=== PATIENT | male | born 1960 | race Caucasian/White ===

== ENCOUNTER → 2017-02-12 | Outpatient (CLI) | payer BC ==
[~2017-02-12] MED LIST: GLCSUNK PO; LEVO150T22 PO; MULT-513 PO; OMEG10007 PO
--- NOTE | 2017-02-12 11:33 | DIAGNOSTIC IMAGING REPORT ---
RIGHT ANKLE MIN 3 VIEWS CLINICAL HISTORY: RIGHT ANKLE PAIN Right pain COMPARISON: None. DISCUSSION: The bones and joint spaces appear intact. There is no evidence of fracture, dislocation or bony disease. Calcification of the interosseous ligament between the distal tibia and distal fibula. Minimal osteophytic reaction from the medial as well as lateral malleolus. IMPRESSION: Mild degenerative change including calcification of the interosseous ligament. No acute bony abnormality. The above report was generated using voice recognition software. It may contain grammatical, syntax or spelling errors. Electronically signed by: Marquise Hatfield M.D. 02/12/2017 11:32 AM Dictated Date/Time: 02/12/2017 11:31 AM
== END | disposition home or self-care (01) ==
LOC: C.RDSM 10:48
PROVIDERS: ATTEND Physician Assistant
DX: R52 Pain, unspecified (principal)

== ENCOUNTER → 2017-02-23 | Outpatient (CLI) | payer BC | END | disposition home or self-care (01) | LOC: C.RDSM 07:30 | PROVIDERS: ATTEND Physical Medicine & Rehabilitation Sports Medicine | DX: M17.0 Bilateral primary osteoarthritis of knee (principal) ==

== ENCOUNTER → 2017-06-03 | Outpatient (CLI) | payer BC ==
[~2017-06-03] MED LIST changes: +ACET-1256 PO; +B-COTAB18 PO; +BACL10TA PO; +CHOL20007 PO; -GLCSUNK PO; +GLUCTAB7 PO; -LEVO150T22 PO; +LEVO200T6 PO; +NAPROSYN PO; +TURMERIC PO; +VITAMIN E PO
--- NOTE | 2017-06-03 07:28 | DIAGNOSTIC IMAGING REPORT ---
ABDOMINAL ULTRASOUND, RIGHT UPPER QUADRANT HISTORY: Elevated liver function tests. COMPARISON: None. FINDINGS: Hepatic echogenicity is diffusely increased consistent with fatty infiltration with suspected sparing within the gallbladder fossa. The liver morphology is normal. There is no biliary ductal dilatation. Pancreas is obscured by overlying bowel gas. There is no right hydronephrosis. The gallbladder is normal. There are no gallstones. IMPRESSION: 1. Fatty infiltration of the liver. 2. No gallstones or biliary ductal dilatation. 3. Obscured pancreas. Electronically signed by: Omer Naidu M.D. 06/03/2017 7:27 AM Dictated Date/Time: 06/03/2017 7:25 AM
== END | disposition home or self-care (01) ==
LOC: C.ULTR 06:35
PROVIDERS: ATTEND Family Medicine
DX: R79.89 Other specified abnormal findings of blood chemistry (principal); K76.0 Fatty (change of) liver, not elsewhere classified

== ENCOUNTER 2017-06-10 06:19 | Inpatient (IN) | payer BC ==
[2017-05-28 14:16] VITALS: BMI 31.0
--- NOTE | 2017-05-28 14:48 | PAT Medication Instructions ---
Service Date May 28, 2017. Current Home Medication List Acetaminophen (Tylenol), 1,000 MG PO PRN B-Complex Vitamins (Vitamin B Complex), 1 TAB PO QAM Baclofen (Lioresal), 10 MG PO BID PRN for RN Cholecalciferol (Vitamin D3), 5,000 UNITS PO QAM Fish Oil (Columbia-3), 1 CAP PO QAM Susxajtrrdz-Juadvtawqsq-Zch C- (Glucosamine Chondroitin), 2 TAB PO QAM Levothyroxine Sodium (Levothyroxine Sodium), 1 TAB PO QAM Multivitamins/Minerals (Mvi With Minerals), 1 TAB PO QAM [Naprosyn], 2 TAB PO QAM PRN for RN [Turmeric], 1 TAB PO QAM [Vitamin E], 1 TAB PO QAM Medication Instructions For Your Scheduled Surgery - Check with surgeon for instructions: [Naprosyn], 2 TAB PO QAM PRN for RN - Hold the following medications starting 05/29/17: [Turmeric], 1 TAB PO QAM [Vitamin E], 1 TAB PO QAM Fish Oil (Columbia-3), 1 CAP PO QAM Mxvaevgksyg-Jazjgnuysei-Wvk C- (Glucosamine Chondroitin), 2 TAB PO QAM - Hold the following medications the morning of surgery: B-Complex Vitamins (Vitamin B Complex), 1 TAB PO QAM Baclofen (Lioresal), 10 MG PO BID PRN for RN Cholecalciferol (Vitamin D3), 5,000 UNITS PO QAM Multivitamins/Minerals (Mvi With Minerals), 1 TAB PO QAM - Take the following medications the morning of surgery with a sip of water: Levothyroxine Sodium (Levothyroxine Sodium), 1 TAB PO QAM Acetaminophen (Tylenol), 1,000 MG PO PRN (okay to take up to 4 hours prior to surgery if needed) If you have any questions please call us at [phone] or [phone] or [phone]
--- NOTE | 2017-05-28 15:34 | DIAGNOSTIC IMAGING REPORT ---
TWO VIEW CHEST CLINICAL HISTORY: Preoperative examination. FINDINGS: PA and lateral chest radiographs are compared to study dated 07/01/2010. The cardiomediastinal silhouette is unremarkable. The lungs and pleural spaces are clear. There is no pneumothorax. The bony thorax appears intact. IMPRESSION: No active disease in the chest. Electronically signed by: Shelton Whaley M.D. 05/28/2017 3:33 PM Dictated Date/Time: 05/28/2017 3:33 PM
[2017-05-28 15:56] LABS: BASO % 0.3 %; BASO ABS # 0.02 K/uL (0-0.2); COMPLETE YES; EOS % 3.2 %; HEMATOCRIT 41.5 % (42-52); IG% 0.3 %; LYMPH % 42.1 %; LYMPH ABS # 2.78 K/uL (1.2-3.4); MEAN CELL VOLUME 85.9 fL (80-100); MEAN CORPUSCULAR HEMOGLOBIN 29.2 pg (25-34); MONO % 6.1 %; PLATELET COUNT 201 K/uL (130-400); RED BLOOD COUNT 4.83 M/uL (4.7-6.1); WHITE BLOOD COUNT 6.61 K/uL (4.8-10.8)
[2017-05-28 16:05] LABS: URINE APPEARANCE CLEAR (CLEAR); URINE BILIRUBIN NEG (NEG); URINE COLOR YELLOW; URINE NITRITE NEG (NEG); URINE SPECIFIC GRAVITY 1.019 (1.000-1.030); UROBILINOGEN NEG (NEG)
[2017-05-28 16:06] LABS: INR 0.9 (0.9-1.1); PARTIAL THROMBOPLASTIN RATIO 1.1
[2017-05-28 16:14] LABS: MANUAL MICROSCOPIC REQUIRED? NO; REVIEW REQ? NO
[2017-05-28 16:37] LABS: BUN/CREATININE RATIO 17.5 (10-20); CALCIUM 8.5 mg/dl (8.5-10.1); CREATININE 1.05 mg/dl (0.60-1.40); POTASSIUM 3.6 mmol/L (3.5-5.1)
--- NOTE | 2017-06-01 15:32 | HISTORY & PHYSICAL EXAMINATION ---
DATE OF ADMISSION: 06/10/2017 CHIEF COMPLAINT: Left knee pain. HISTORY OF PRESENT ILLNESS: This 56-year-old white male presents to the office with complaints of left knee pain that had been ongoing for several years. It has become worse with time. Pain is affecting his ADLs. Pain is worse with ambulation and weightbearing. He does have a history of previous knee arthroscopy and ACL reconstruction in this knee. There is a previous right total knee arthroplasty and he has done well with that. He elects to proceed with the same on the left. He has tried physical therapy as well as oral anti-inflammatories and activity modification without lasting relief. Preoperative x-rays have been obtained. PAST MEDICAL HISTORY: Significant for elevated cholesterol, peripheral neuropathy, hypothyroidism, low back pain, GERD, varicocele, and obesity. PREVIOUS SURGERIES: Laminectomy in 2010, right knee TKA in 2010, bilateral shoulder rotator cuff repairs, hernia repair, left knee ACL reconstruction, and bilateral knee arthroscopies. ALLERGIES: NKDA. CURRENT MEDICATIONS: Naprosyn p.r.n., ibuprofen p.r.n., Voltaren gel p.r.n., fluticasone nasal spray daily, vitamin E daily, vitamin D daily, Synthroid 200 mcg p.o. daily, multivitamin daily, baclofen 10 mg p.o. b.i.d., omega 3 fatty acids daily, and Tylenol p.o. b.i.d. SOCIAL HISTORY: The patient is . Employed. No tobacco use. Occasional ETOH use. FAMILY HISTORY: Significant for breast cancer, depression, heart disease, and skin cancer. REVIEW OF SYSTEMS: Significant for above stated conditions. Otherwise, unremarkable. PHYSICAL EXAMINATION: GENERAL: Well-developed and well-nourished middle aged white male in no acute distress. Sitting on a bed. Alert and oriented. SKIN: Warm and dry with good turgor. No rashes or lesions. No ecchymosis or erythema. HEENT: Normocephalic and atraumatic. Eyes, PERRLA and EOMI. Nares patent bilaterally without turbinate enlargement. Oropharynx is without erythema or exudate. No lesions noted. Uvula midline. Oral mucosa moist. Good dentition. HEART: RRR. No MGR. LUNGS: Clear to auscultation bilaterally. No crackles, rhonchi or wheezing. Good air movement. ABDOMEN: Mildly obese. Bowel sounds present x4, soft and nontender. No organomegaly. No masses. MUSCULOSKELETAL: Left knee has no significant intraarticular effusion. He has notable valgus alignment. Focal discomfort with palpation over the medial and lateral joint lines. Increased translation with Jazmyn testing. No MCL or LCL laxity. No defect in the patellar tendon or quadriceps tendon. He has crepitation with motion. Lacks approximately 5 degrees of terminal extension. Flexion to greater than 90 degrees. Strength is 5/5 with good quad tone. Ambulatory with a slightly antalgic gait. NEUROLOGIC: Cranial nerves II through XII are intact. Gross sensation is intact across both lower extremities by soft touch. Peripheral pulses are 2+. DATA: Radiographic imaging previously obtained shows tricompartmental DJD of the left knee. He has slight subluxation of the tibia laterally. Valgus alignment. Periarticular osteophytes, subchondral sclerosis, and joint space narrowing are present. Retained hardware from his old ACL reconstruction is visible in the femur and tibia. IMPRESSION: Left knee end-stage degenerative joint disease with retained orthopedic hardware (screws). PLAN: Informed written consent to proceed with left total knee arthroplasty and removal of hardware will be obtained in the morning of surgery. Preoperative lab work, EKG, and chest x-ray have been ordered. Medical clearance has been requested from his PCP. Postoperative prescriptions for Percocet and Coumadin will be provided at discharge from the hospital. He already has crutches. He would like home health for 2 weeks after surgery and then start outpatient PT.
[2017-06-10] VITALS (7 sets, daily range): BP systolic 110–144; BP diastolic 66–83; PULSE 57–65; TEMP 36.6–36.9; O2SAT 94–98; Ht 185.4 cm; Wt 108.5 kg
[~2017-06-10] VITALS: Ht 185.4 cm; Wt 108.5 kg
[~2017-06-10 06:19] MED LIST changes: +CEFAZOLIN 2000MG IV PUSH 10 ML IV SCH; +LACTATED RINGER'S 1000ML 1,000 ML IV SCH; +LACTATED RINGER'S 1000ML 500 ML IV ONE; +LACTATED RINGER'S 1000ML IV SCH; +ROPIVACAINE 5MG/ML 30 ML 150 MG, BUPIVACAINE 0.5% MPF INJ 30 ML, EpINEphrine HCL INJ 0.... INFIL SCH; +ROPIVACAINE 5MG/ML 30 ML 150 MG, BUPIVACAINE/EPINEPHR 0.5% MPF 30 ML, KETOROLAC TROMETH... INFIL SCH; +TRANEXAMIC ACID INJ 1,000 MG in SYRINGE 0 ML IV SCH
[2017-06-10] MEDS ORDERED: BUPIVACAINE 0.5 % 5 MG/1 ML PF 10ML VIAL ONE (06:24)
[2017-06-10] MEDS ORDERED: BUPIVACAINE 0.25% 30 ML VIAL ONE (06:24)
[2017-06-10] MEDS ORDERED: MIDAZOLAM HCL 1 MG/ML 2ML VIAL ONE ×3 (07:31→09:01)
[2017-06-10] MEDS ORDERED: FENTANYL CITRATE INJ 50 MCG/1 ML 2 ML VIAL ONE (07:32)
[2017-06-10] MEDS ORDERED: PROPOFOL IV EMULSION 10 MG/ML 20 ML VIAL IV ONE (07:53)
[2017-06-10] MEDS ORDERED: LIDOCAINE HCL 2% 2 ML VIAL (20MG/ML) ONE (07:53)
[2017-06-10] MEDS ORDERED: ONDANSETRON INJ 2 MG/ML 2 ML VIAL ONE (07:53)
[2017-06-10] MEDS ORDERED: PROMETHAZINE HCL INJ 12.5 MG in SODIUM CHLORIDE 0.9% 50ML 50 ML IV PRN (08:00)
[2017-06-10] MEDS ORDERED: ONDANSETRON INJ 2 MG/ML 2 ML VIAL IV PRN ×2 (08:00→10:30)
[2017-06-10] MEDS ORDERED: HYDROmorphone INJ 1 MG/ML SYR IV PRN (08:00)
[2017-06-10] MEDS ORDERED: EpHEDrine SULFATE INJ 50 MG/ML AMP IV PRN (08:00)
[2017-06-10] MEDS ORDERED: FENTANYL CITRATE INJ 50 MCG/1 ML 2 ML VIAL IV PRN (08:00)
[2017-06-10] MEDS ORDERED: ATROPINE SULFATE 0.1 MG/ML 5ML SYR IV PRN (08:00)
--- NOTE | 2017-06-10 08:10 | History & Physical Bridge Note ---
H&P Re-Evaluation Bridge Note: I have examined the patient, reviewed the History & Physical and in the interval since the performance of the History & Physical I have noted the following changes of clinical significance: consent obtained.No changes noted
[2017-06-10] MEDS ORDERED: ORTHO JOINT ANESTHETIC ONE (08:27)
[2017-06-10] MEDS ORDERED: POVIDONE-IODINE OP SOLN 30 ML BTL ONE (08:27)
[2017-06-10] MEDS ORDERED: EpHEDrine SULFATE 50MG/5ML SYR ONE (09:12)
--- NOTE | 2017-06-10 10:18 | [facility] Post Operative Brief Note ---
Immediate Operative Summary Operative Date Jun 10, 2017. Pre-Operative Diagnosis Left Knee End-Stage Degenerative Joint Disease with Retained Orthopedic Hardware (screws x2) Post-Operative Diagnosis Left Knee End-Stage Degenerative Joint Disease with Retained Orthopedic Hardware (screws x2) Procedure(s) Performed Left Total Knee Arthroplasty with Removal of Hardware Left Knee Surgeon Dr. Allen Video Intern Surgeon(s) BARNEY Flowers Estimated Blood Loss 50 ml Findings severe djd/retained hardware deep Fluids (cc crystalloids) 1100cc Specimens A. Removed Hardware Left Knee (screws x2) B. Left Knee Bone and Tissue Drains none Anesthesia spinal/block Complication(s) None Disposition Recovery Room / PACU
[2017-06-10] MEDS ORDERED: DiphenhydrAMINE HCL 50 MG/ML VIAL IV PRN (10:30)
[2017-06-10] MEDS ORDERED: ACETAMINOPHEN 325 MG TAB PO PRN (10:30)
[2017-06-10] MEDS ORDERED: TAMSULOSIN HCL 0.4 MG CAP PO PRN (10:30)
[2017-06-10] MEDS ORDERED: METOCLOPRAMIDE HCL INJ 5 MG/ML 2 ML VIAL IV PRN (10:30)
[2017-06-10] MEDS ORDERED: CEFAZOLIN IV 2,000 MG in DEXTROSE 5% 50ML 50 ML IV SCH (10:30)
[2017-06-10] MEDS ORDERED: ALUMINUM/MAGNESIUM/SIMETH (MAALOX MAX) 30 ML UDC PO PRN (10:30)
[2017-06-10] MEDS ORDERED: BISACODYL 10 MG SUPP PR PRN (10:30)
[2017-06-10] MEDS ORDERED: MAGNESIUM HYDROXIDE SUSP 30 ML UDC PO PRN (10:30)
--- NOTE | 2017-06-10 10:43 | [facility] Operative Report ---
Operative Report Operative Date Jun 10, 2017. Pre-Operative Diagnosis Left Knee End-Stage Degenerative Joint Disease with Retained Orthopedic Hardware (screws x2) Post-Operative Diagnosis Left Knee End-Stage Degenerative Joint Disease with Retained Orthopedic Hardware (screws x2) Procedure(s) Performed Left Total Knee Arthroplasty with Removal of Hardware Left Knee Surgeon Dr. Allen Forming Department End Finder Surgeon(s) BARNEY Flowers Estimated Blood Loss 50 ml Findings Left knee DJD Fluids 1100cc Specimens A. Removed Hardware Left Knee (screws x2) B. Left Knee Bone and Tissue Drains none Anesthesia spinal/block Complication(s) None Disposition Recovery Room / PACU Indications This 56-year-old white male presented to the office with complaints of long- standing left knee pain. He had tried conservative care measures including Corticosteroid injection, viscosupplementation, activity modification, and oral anti-inflammatories without lasting relief. He elected to proceed with surgical intervention after being educated about potential risks and outcomes. Preoperative imaging was obtained. Description of Procedure Patient was administered a spinal anesthetic and then taken to the operating room where he was given sedation. He was prepped and draped in usual sterile fashion. Please see Dr. Allen's operative report for specifics of the procedure. I was present for the entire case from initial patient positioning through final wound closure. Assistance was provided in tissue traction, hemostasis, trial implant placement, final implant placement, and final wound closure. Patient was taken to the recovery room in satisfactory condition. I attest to the content of the Intraoperative Record and any orders documented therein. Any exceptions are noted below.
--- NOTE | 2017-06-10 10:45 | OPERATIVE REPORT ---
DATE OF OPERATION: 06/10/2017 SURGEON: Baron Allen MD HUMAN RESOURCES CLERK: Se Kumar PA-C. No resident or fellow available. PREOPERATIVE DIAGNOSES: Severe osteoarthritis, valgus deformity, left knee with history of anterior cruciate ligament reconstruction and retained hardware of femur and tibia, deep. POSTOPERATIVE DIAGNOSES: Same. OPERATION PERFORMED: Left total knee replacement, correction of valgus deformity and removal of retained hardware of femur and tibia deep. Removal of deep hardware and cemented left total knee replacement with rotating platform knee. PERIOPERATIVE SITUATION: Medically cleared male with intractable pain has significant DJD by x-ray and by physical exam, has no major flexion contractures, valgus deformity. He has an old ACL reconstruction with the deep tibial and femoral screw. PROCEDURE: The patient appropriately identified, site verified, consent verified, 2 grams of Ancef confirmed as being given and the anterior approach to the knee was made. Full thickness flaps placed. Parapatellar arthrotomy performed. Synovectomy completed. The tibial screw with bone overgrowing it was palpated and then the screw head cleaned by chipping away some cortical bone. The screw was then identified and removed. The complete release of the medial soft tissue anteromedially was performed. Retractors placed as well as anterolaterally. The menisci excised. The cruciates excised. The ACL graft was completely eliminated. Bone overgrowth was removed from the notch in order to find the PCL, a distal femoral seating hole made. Distal femur then resected. Proximal tibia then resected. The extension gap was then excellent. The femur sized between a 5 and a 4, was measured 5 cut 4. There was no notching. The flexion gap was then checked. It was excellent. The box cut was then made on the femur and then the screw identified and removed from the femur. The size 4 trial fit well. The tibia was then subluxated, then broached and reamed for rotating platform size 4 tibia component, 10 mm spacer provided excellent extension and flexion stability. There was no mid range instability. The patella was sized to 41. Osteophytes resected. It was trimmed down to 16 mm thick and the seating holes made in the patellar button tracked well. The wound was then irrigated with Betadine and Pulsavac and then injected with Orthomix and then the permanents cemented into position. After 12 minutes, the tourniquet deflated. After 14 minutes, the knee flexed. No cement removal was required. Everything looked good. It was irrigated with Betadine and Pulsavac. The permanent liner seated. The knee reduced and then closed with #1 Ethibond, #1 Vicryl, 2-0 Vicryl and stainless steel clips. ESTIMATED BLOOD LOSS: Approximately 50 mL. CRYSTALLOID: 1100 mL SUMMARY OF IMPLANTS: Size 4 posterior cruciate substituting femur rotating platform, size 4 rotating platform tray, oval domed 3 pegged patella size 41, tibial insert size 4 and 10 mm thick posterior cruciate substituting/stabilizing 2 bags of Palacos G cement. DVT prophylaxis with Coumadin. Of note is that the patient has some form of muscular fasciculation syndrome. I attest to the content of the Intraoperative Record and any orders documented therein. Any exception s are noted below.
--- NOTE | 2017-06-10 11:09 | PROGRESS NOTE ---
DATE: 06/10/2017 Postop check. The patient was seen in the recovery room. At this point in time, he denies chest pain, shortness of breath, fever, chills, nausea, vomiting and headache. Vital signs are stable. He is afebrile. Neurovascular check is limited by the block that is starting to wear off. The wound dressing is clean, dry and intact. Postop x-rays look excellent. ASSESSMENT: Overall, doing well. Continue with post care pathway. Prepare for potential discharge tomorrow. Coumadin this evening. ARMANDO
[2017-06-10] MEDS ORDERED: WARF2TAB PO (11:19)
[2017-06-10] MEDS ORDERED: OXYC-57 PO (11:19)
--- NOTE | 2017-06-10 11:57 | DIAGNOSTIC IMAGING REPORT ---
LEFT KNEE 2 VIEWS History: Left total knee arthroplasty. Degenerative arthritis. Postop. FINDINGS: The patient is status post a left total knee arthroplasty. The hardware is intact. No fracture or dislocation. Skin jose are in place. IMPRESSION: Left total knee arthroplasty. No evidence for hardware complication. Electronically signed by: Galen Hyman M.D. 06/10/2017 11:56 AM Dictated Date/Time: 06/10/2017 11:54 AM
--- NOTE | 2017-06-10 12:51 | Anesthesiology Progress Note ---
Anesthesia Post Op Note Date & Time Jun 10, 2017 at 12:50 Vital Signs Pain Intensity: 0 Vital Signs Past 12 Hours Date Time Temp Pulse Resp B/P (MAP) Pulse Ox O2 Delivery O2 Flow Rate FiO2 06/10/17 12:18 36.6 54 16 110/56 (72) 99 Nasal Cannula 2 06/10/17 11:16 102/55 06/10/17 11:15 52 13 98 06/10/17 11:15 53 13 06/10/17 11:11 102/57 06/10/17 11:10 49 12 06/10/17 11:10 50 12 97 06/10/17 11:06 104/59 06/10/17 11:05 53 16 06/10/17 11:05 54 16 97 06/10/17 11:01 104/60 06/10/17 11:00 53 14 97 06/10/17 11:00 54 14 06/10/17 10:56 104/58 06/10/17 10:55 56 14 06/10/17 10:55 57 14 97 06/10/17 10:51 106/63 06/10/17 10:50 65 13 97 06/10/17 10:50 65 13 06/10/17 10:46 102/62 06/10/17 10:45 56 12 06/10/17 10:45 57 12 97 06/10/17 10:44 61 14 97 06/10/17 10:44 61 14 06/10/17 10:41 108/59 06/10/17 10:39 55 13 97 06/10/17 10:39 56 13 06/10/17 10:36 119/60 06/10/17 10:34 68 14 98 06/10/17 10:34 69 14 06/10/17 10:31 106/52 06/10/17 10:29 60 14 06/10/17 10:29 60 14 96 06/10/17 10:26 108/58 06/10/17 10:24 36.9 57 16 108/58 96 Nasal Cannula 2 06/10/17 10:24 65 7 06/10/17 10:24 64 7 94 06/10/17 06:52 36.8 63 18 144/83 96 Room Air Notes Mental Status: alert / awake / arousable, participated in evaluation Pt Amnestic to Procedure: Yes Nausea / Vomiting: adequately controlled Pain: adequately controlled Airway Patency, RR, SpO2: stable & adequate BP & HR: stable & adequate Hydration State: stable & adequate Neuraxial Anesthesia: was administered, sensory block is resolving Anesthetic Complications: no major complications apparent Awake, doing well, VSS.
[2017-06-10] MEDS ORDERED: MoRPHine SULFATE 4 MG/ML 1 ML CARP\\VIAL IV PRN (13:15)
[2017-06-10] MEDS ORDERED: D5W AND 1/2NSS + 20MEQ KCL 1,000 ML IV SCH (13:30)
[2017-06-10] MEDS: KETOROLAC TROMETHAMINE 30 MG/ML VIAL IV. SCH ×2 (13:32→20:28)
[2017-06-10] MEDS: OXYCODONE HCL IR 5 MG TAB (IMMEDIATE RELEASE) PO PRN ×4 (14:26→23:56)
[2017-06-10] MEDS: MoRPHine SULFATE 2 MG/ML CARP IV PRN ×4 (15:50→22:03)
[2017-06-10] MEDS ORDERED: WARFARIN SOD 5 MG TAB PO SCH (16:00)
[2017-06-10] MEDS ORDERED: TRANEXAMIC ACID INJ 1,000 MG in SODIUM CHLORIDE 0.9% 100ML 100 ML IV SCH (16:00)
[2017-06-10] MEDS: CEFAZOLIN IV 2,000 MG in SYRINGE 0 ML IV SCH ×2 (16:01→23:55)
[2017-06-10] MEDS: FERROUS GLUCONATE 324 MG TAB PO SCH (17:44)
[2017-06-10] MEDS: DOCUSATE SODIUM 100 MG CAP PO SCH (20:32)
[2017-06-11 00:05] VITALS: BP 112/71; PULSE 63; TEMP 36.7; O2SAT 94
[2017-06-11] MEDS: KETOROLAC TROMETHAMINE 30 MG/ML VIAL IV. SCH ×2 (02:02→07:49)
[2017-06-11 03:45] VITALS: BP 116/70; PULSE 66; TEMP 36.8; O2SAT 95
[2017-06-11] MEDS: OXYCODONE HCL IR 5 MG TAB (IMMEDIATE RELEASE) PO PRN ×2 (05:51→10:33)
[2017-06-11] MEDS ORDERED: LEVOTHYROXINE 200 MCG TAB PO SCH (06:00)
[2017-06-11 06:17] LABS: HEMATOCRIT 37.7 % (42-52); MEAN CELL VOLUME 87.1 fL (80-100); MEAN CORPUSCULAR HEMOGLOBIN 29.3 pg (25-34); MEAN CORPUSCULAR HGB CONC 33.7 g/dl (32-36); MEAN PLATELET VOLUME 9.5 fL (7.4-10.4); PLATELET COUNT 229 K/uL (130-400); RED BLOOD COUNT 4.33 M/uL (4.7-6.1); WHITE BLOOD COUNT 13.41 K/uL (4.8-10.8)
[2017-06-11 06:27] LABS: PROTHROMBIN TIME (PATIENT) 10.4 SECONDS (9.0-12.0)
[2017-06-11 06:51] LABS: BUN/CREATININE RATIO 12.8 (10-20); CALCIUM 8.7 mg/dl (8.5-10.1); CREATININE 1.26 mg/dl (0.60-1.40); POTASSIUM 3.9 mmol/L (3.5-5.1)
--- NOTE | 2017-06-11 07:02 | PROGRESS NOTE ---
DATE: 06/11/2017 Postop day #1 status post left total knee replacement. At this point, the patient is doing well. Denies chest pain, shortness of breath, fever, chills, nausea, vomiting or headache. He is ambulatory, he is voiding, he is eating. Wound dressing is clean, dry and intact. Sensation is normal. Calves nontender. Hematocrit stable at 37.7. INR is 1.0. Chemistry is pending. ASSESSMENT: Doing well status post left total knee replacement. Plan is to discharge today. Discharge on 4 mg of Coumadin daily. Keep INR 1.8 to 2.2. Check INR on Thursday. MTDD
--- NOTE | 2017-06-11 07:10 | DISCHARGE SUMMARY ---
DATE OF DISCHARGE: 06/11/2017 CHIEF COMPLAINT: Left knee pain. HISTORY OF PRESENT ILLNESS: A 56-year-old male admitted for left total knee replacement. He has had no issues in the hospital. He is voiding, eating, walking. He denies any chest pain, shortness of breath, fever, chills, nausea, vomiting or headache. His labs are stable. PAST MEDICAL HISTORY: Remarkable for hypercholesterolemia, peripheral neuropathy, hypothyroidism, low back pain, GERD, rectocele, obesity and twitching muscle disease. SURGICAL HISTORY: Includes laminectomy, right knee replacement in 2010, rotator cuff surgery, hernia repair, left knee ACL reconstruction, multiple knee arthroscopies. ALLERGIES: None. PREADMISSION MEDICATIONS: Include Naprosyn, ibuprofen, Voltaren gel on a p.r.n. basis, fluticasone nasal spray, vitamin E, vitamin D, Synthroid, multivitamins, baclofen, omega-3 fatty acids and Tylenol. SOCIAL HISTORY: Reveals he is . He is employed. No tobacco. Social alcohol use. FAMILY HISTORY: Remarkable for breast cancer, depression, heart disease and skin cancer. REVIEW OF SYSTEMS: Negative as noted above. ASSESSMENT: Overall doing well status post left total knee replacement. Plan is for discharge today. Discharge on 4 mg Coumadin daily. Check INR on Thursday. Follow up in 2 weeks for staple removal. Prescription for Percocet or Vicodin as needed for roughly 10 days, then transition to Tylenol.
[2017-06-11] MEDS ORDERED: DEXAMETHASONE INJ 10 MG in SYRINGE 0 ML IV SCH (07:30)
[2017-06-11 07:57] VITALS: BP 128/74; PULSE 67; TEMP 37.1; O2SAT 94
[2017-06-11] MEDS: CEFAZOLIN IV 2,000 MG in SYRINGE 0 ML IV SCH (08:43)
[2017-06-11] MEDS: FERROUS GLUCONATE 324 MG TAB PO SCH ×2 (08:44→13:00)
[2017-06-11] MEDS: DOCUSATE SODIUM 100 MG CAP PO SCH (08:44)
[2017-06-11] MEDS ORDERED: PANTOprazole SOD 40 MG TAB PO SCH (09:00)
[2017-06-11] MEDS ORDERED: MULTIVITAMIN TAB PO SCH (09:00)
--- NOTE | 2017-06-11 09:34 | Discharge Instructions ---
Discharge Instructions Date of Service Jun 10, 2017. Admission Reason for Admission: Left Knee Degenerative Joint Disease Discharge Discharge Diagnosis / Problem: left knee s/p total knee replacement Discharge Goals Goal(s): Decrease discomfort, Improve function, Increase independence, Improve disease control Activity Recommendations Activity Limitations: as noted below Lifting Limitations: gradually increase as tolerated Exercise/Sports Limitations: until after follow-up appointment Shower/Bathe: keep incision dry Driving or Machine Use: No driving until cleared by Dr. Allen Weightbearing Status: Left weightbearing (as tolerated) . Instructions / Follow-Up Instructions / Follow-Up New Medicine: * You will likely be taking one or more of these medications: 1. Percocet - Take, as directed, when you need it, every four to six hours to control your pain. 2. Coumadin - Thins your blood to lessen the chance of forming a blood clot. The dose of this is different for each person and is based on your blood tests that are done twice a week. * The most common side effects of pain medicine and iron are nausea and constipation. If nausea or constipation is too much of a problem or if you have any questions about your new medicines or doses, call [facility] at . We will try to help you manage these issues. VERY IMPORTANT TO READ AND REVIEW" Blood Clots and Blood Thinning Medicine: * You are given Coumadin during the immediate post-operative period to lessen the risk of blood clots forming in your legs and/or lungs. Coumadin is usually given for six weeks after surgery. * The prescription is for 2 mg tablets. At discharge, you should understand your dose and take it all at the same time every day, preferably after dinner. * You need to get your blood checked 1 - 2 times per week for six weeks or as directed. * If your dose needs to change, we will call you. Do not take your medication on the day of the blood test until we call you. Pain: * The immediate post-operative period after knee replacement surgery is often quite painful. * You are given a prescription for pain medicine. You should take it, as directed, when you need it, especially before physical therapy and before going to bed. Pain that interferes with sleep is very common and can last several months. * You will likely need pain medicine for the first four to six weeks. It will not stop all of the pain. The pain will lessen and as you feel better, you may change to milder pain medicine such as Tylenol. * The most common side effects of pain medicine are nausea and constipation, so don't take more than you need. Physical Therapy: * You will have physical therapy two or three times each week for four to six weeks after your surgery in order to regain your knee range of motion and to retrain your knee to work properly. * It is just as important to make sure you are getting your knee perfectly straight as it is to regain your knee bend. * Taking a pain pill an hour before therapy can help you have a more productive and comfortable therapy session if needed. Home Exercise: * You were shown a series of exercises (heel props, heel slides, etc.) in the hospital. Do these exercises three to four times each day including the exercises you were shown in physical therapy. Walking: * Get up and walk several times each day. For the first four weeks, try not to stand or walk for more than one hour at a time. If you do stand or walk for more than one hour, you will not hurt anything, but your knee and leg will likely swell. * As you feel comfortable, you may change from the walker or crutches to a cane and then to independent walking. SELF CARE INSTRUCTIONS AFTER TOTAL KNEE REPLACEMENT A. You may need to continue a physical therapy program after discharge from the hospital. There are several options available to you. Your doctor will assist you in selecting the best one for you. 1. An out-patient facility 2 to 3 times a week for therapy or home therapy. 2. Continue working on all exercises taught to you in the hospital. Your goals should be to increase bending of your knee to 90 degrees and beyond and to fully straighten your knee. B. You may progress at your own pace from walking with a walker or crutches to a cane; then to no assistive devices. C. Make walking a part of your daily routine. Be up as much as comfortable with rest periods throughout the day. Rest with leg elevation is very important. Use the ice wrap frequently for the first 3-4 weeks. D. There are no restrictions on activities. You may ride in a car, shop, participate in bar back and all social activities. E. Wear the long elastic stockings (AYDEN hose) 20 hours a day for six weeks after surgery. They can be removed several times a day for laundering and for a shower. F. Do not place a pillow behind your knee when resting. A pillow at your ankle is okay. VERY IMPORTANT TO READ AND REVIEW A. Take Coumadin, Aspirin or Lovenox (blood thinning medications) as directed by your doctor. If on Coumadin, have a pro-time (blood test) drawn according to your doctor's instructions. This will tell the doctor how well the Coumadin is thinning your blood. 1. YOU WILL BE GIVEN AN ORDER AT DISCHARGE FOR PT/INR (BLOOD WORK). PLEASE HAVE THIS DONE INSTRUCTED. PLEASE CALL OUR OFFICE AFTER YOUR BLOODWORK IS COMPLETE SO WE CAN TRACK YOUR RESULTS. IF YOU ARE GOING TO OUTPATIENT PHYSICAL THERAPY, YOU WILL NEED TO GO TO OUTPATIENT TESTING TO HAVE IT DRAWN. B. There are a few signs you need to watch for after you are home. Call [facility] if you notice any of the followin. Increased severe knee pain. Some pain is expected especially when you exercise. 2. Increased swelling in your leg or knee; pain or swelling of the calf muscle in either lower leg. 3. Any fluid drainage from the incision. 4. Shortness of breath or chest pain. C. Please call [facility] at if you have any concerns or questions about your operation or recovery. The doctor or his nurse will return your call promptly. D. You must take antibiotics before dental work, bladder, bowel or other surgery. Call the office to obtain a prescription at least 2 days prior to your appointment. * CALL IF INCREASED PAIN, REDNESS, DRAINAGE OR FEVER GREATER THAT 101. * Sutures should be removed 12-14 days after surgery unless you are on chronic steriods, then it will be 14-18 days after surgery. Call your doctor if: * Temperature above 101 degrees F. * Pain not relieved by pain medicine ordered. * Increased drainage or redness from incision. * Notify your doctor with any questions or concerns. Current Hospital Diet Patient's current hospital diet: Regular Diet Discharge Diet Recommended Diet: Regular Diet Procedures Procedures Performed: Left Total Knee Arthroplasty with Removal of Hardware Left Knee Pending Studies Studies pending at discharge: no Medical Emergencies . Who to Call and When: Medical Emergencies: If at any time you feel your situation is an emergency, please call 911 immediately. . Non-Emergent Contact Non-Emergency issues call your: Primary Care Provider, Surgeon Call Non-Emergent contact if: temperature is above 101, wound has increased drainage, wound has increased redness, wound has increased pain, you have any medication questions . "Provider Documentation" section prepared by Se Kumar PA-C. . VTE Core Measure Inpt VTE Proph given/why not?: Warfarin (Coumadin), T.ECyndie Stockings, SCD's [place] Drug Monitoring Program Search Results: no issues identified
--- NOTE | 2017-06-11 09:45 | Orthopedic Progress Note ---
Orthopedic Progress Note Date of Service Jun 11, 2017. Subjective Post OP Day: 1 Reports: feeling well, pain controlled w PO medications, Denies: complaints, chest pain, SOB, nausea / vomiting, light headedness, calf pain Objective calves soft nontender, N/V intact, capillary refill less than 2 sec., dressing C /D/I, incision C/D/I, A&O x3, toes mobile, CMS intact minor drainage on bandages distally. No active drainage. Date Time Temp Pulse Resp B/P (MAP) Pulse Ox O2 Delivery O2 Flow Rate FiO2 06/11/17 07:57 37.1 67 16 128/74 (92) 94 Room Air 06/11/17 03:45 36.8 66 18 116/70 (85) 95 Room Air 06/11/17 00:05 36.7 63 18 112/71 (85) 94 Room Air 06/10/17 20:25 Room Air 06/10/17 19:15 36.9 65 16 121/71 (88) 94 Room Air 06/10/17 17:30 Nasal Cannula 2.0 06/10/17 16:17 36.6 57 16 129/76 (93) 97 Nasal Cannula 2.0 06/10/17 15:35 36.6 58 16 125/73 (90) 97 Room Air 06/10/17 14:10 60 18 117/66 (83) 06/10/17 13:40 61 18 118/79 (92) 96 Nasal Cannula 2.0 06/10/17 12:45 Nasal Cannula 2.0 06/10/17 12:45 36.8 64 16 110/67 (81) 98 Nasal Cannula 2.0 06/10/17 12:45 Nasal Cannula 2.0 06/10/17 12:18 36.6 54 16 110/56 (72) 99 Nasal Cannula 2 06/10/17 11:16 102/55 06/10/17 11:15 52 13 98 06/10/17 11:15 53 13 06/10/17 11:11 102/57 06/10/17 11:10 49 12 06/10/17 11:10 50 12 97 06/10/17 11:06 104/59 06/10/17 11:05 53 16 06/10/17 11:05 54 16 97 06/10/17 11:01 104/60 06/10/17 11:00 53 14 97 06/10/17 11:00 54 14 06/10/17 10:56 104/58 06/10/17 10:55 56 14 06/10/17 10:55 57 14 97 06/10/17 10:51 106/63 06/10/17 10:50 65 13 97 06/10/17 10:50 65 13 06/10/17 10:46 102/62 06/10/17 10:45 56 12 06/10/17 10:45 57 12 97 06/10/17 10:44 61 14 97 06/10/17 10:44 61 14 06/10/17 10:41 108/59 06/10/17 10:39 55 13 97 06/10/17 10:39 56 13 06/10/17 10:36 119/60 06/10/17 10:34 68 14 98 06/10/17 10:34 69 14 06/10/17 10:31 106/52 06/10/17 10:29 60 14 06/10/17 10:29 60 14 96 06/10/17 10:26 108/58 06/10/17 10:24 36.9 57 16 108/58 96 Nasal Cannula 2 06/10/17 10:24 65 7 06/10/17 10:24 64 7 94 Laboratory Results 24 Hours: Test 06/11/17 05:59 Hematocrit 37.7 % Hemoglobin 12.7 g/dL Prothromb Time International Ratio 1.0 Prothrombin Time 10.4 SECONDS Assessment & Plan Assessment: Left knee s/p total knee arthroplasty Plan: OT/PT today dressing changed today, AYDEN white applied D/C to home today with home health coumadin per nomogram. follow up in the office in 2 weeks for staple removal. Discharge Planning Discharge Planning: home with home health Pain Management: Percocet DVT Prophylaxis: TEDs, SCDs, Coumadin
[2017-06-11 11:13] VITALS: BP 123/72; PULSE 72; TEMP 36.9; O2SAT 91
[2017-06-11 12:02] VITALS: BP 123/72; PULSE 72; TEMP 36.9; O2SAT 91
[2017-06-11] MEDS ORDERED: WARFARIN SOD 5 MG TAB PO SCH (16:00)
== END 2017-06-11 13:48 | disposition home health service (06) | DRG 470 ==
LOC: C.ACU 06:19 → C.3E 06:20 → ENRESERV 12:27
PROVIDERS: ADMIT Physical Medicine & Rehabilitation Sports Medicine; ATTEND Physical Medicine & Rehabilitation Sports Medicine
PROC: 0QPH04Z Removal of Internal Fixation Device from Left Tibia, Open Approach (ICD-10-PCS; principal; 2017-06-10 08:45)
PROC: 0QP704Z Removal of Internal Fixation Device from Left Upper Femur, Open Approach (ICD-10-PCS; principal; 2017-06-10 08:45)
PROC: 0SRD0J9 Replacement of Left Knee Joint with Synthetic Substitute, Cemented, Open Approach (ICD-10-PCS; principal; 2017-06-10 08:45)
DX: M17.12 Unilateral primary osteoarthritis, left knee (principal); M21.062 Valgus deformity, not elsewhere classified, left knee; E03.9 Hypothyroidism, unspecified; G62.9 Polyneuropathy, unspecified; E66.9 Obesity, unspecified; Z68.31 Body mass index [BMI] 31.0-31.9, adult; Z98.890 Other specified postprocedural states; Z96.651 Presence of right artificial knee joint; Z79.1 Long term (current) use of non-steroidal anti-inflammatories (NSAID); Z79.899 Other long term (current) drug therapy; Z82.49 Family history of ischemic heart disease and other diseases of the circulatory system; Z81.8 Family history of other mental and behavioral disorders; Z80.3 Family history of malignant neoplasm of breast; Z80.8 Family history of malignant neoplasm of other organs or systems

== ENCOUNTER → 2017-06-15 | Outpatient (CLI) | payer BC ==
[~2017-06-15] MED LIST changes: -CEFAZOLIN 2000MG IV PUSH 10 ML IV SCH; -GLUCTAB7 PO; -LACTATED RINGER'S 1000ML 1,000 ML IV SCH; -LACTATED RINGER'S 1000ML 500 ML IV ONE; -LACTATED RINGER'S 1000ML IV SCH; -NAPROSYN PO; -OMEG10007 PO; +OXYC-57 PO; -ROPIVACAINE 5MG/ML 30 ML 150 MG, BUPIVACAINE 0.5% MPF INJ 30 ML, EpINEphrine HCL INJ 0.... INFIL SCH; -ROPIVACAINE 5MG/ML 30 ML 150 MG, BUPIVACAINE/EPINEPHR 0.5% MPF 30 ML, KETOROLAC TROMETH... INFIL SCH; -TRANEXAMIC ACID INJ 1,000 MG in SYRINGE 0 ML IV SCH; -TURMERIC PO; -VITAMIN E PO; +WARF2TAB PO
[2017-06-15 11:45] LABS: PROTHROMBIN TIME (PATIENT) 10.7 SECONDS (9.0-12.0)
== END | disposition home or self-care (01) ==
LOC: C.LABSPEC 11:13
PROVIDERS: ATTEND Physical Medicine & Rehabilitation Sports Medicine
DX: Z79.01 Long term (current) use of anticoagulants (principal); Z51.81 Encounter for therapeutic drug level monitoring

== ENCOUNTER → 2017-06-18 | Outpatient (CLI) | payer BC ==
[2017-06-18 11:47] LABS: INR 1.2 (0.9-1.1)
== END | disposition home or self-care (01) ==
LOC: C.LABSPEC 11:29
PROVIDERS: ATTEND Physical Medicine & Rehabilitation Sports Medicine
DX: Z01.89 Encounter for other specified special examinations (principal)

== ENCOUNTER → 2017-07-27 | Outpatient (CLI) | payer BC, OTHER | END | disposition home or self-care (01) | LOC: C.RDSM 08:45 | PROVIDERS: ATTEND Physical Medicine & Rehabilitation Sports Medicine | DX: M17.12 Unilateral primary osteoarthritis, left knee (principal) ==